=== PATIENT | female | born 1945 | race Two or more races ===

== ENCOUNTER 2023-12-28 11:27 | Inpatient (IN) | payer MEDICARE, OTHER ==
[~2023-12-28] VITALS: Ht 157.5 cm; Wt 51.9 kg
[~2023-12-28 11:27] MED LIST: ASPI-325 PO; ATO40T PO; CLOP75TA70 PO; LORA-483 PO; PANT40TA2 PO; TEMA30CA PO
[2023-12-28 12:39] VITALS: PULSE 101; RESP 15; O2SAT 97
[2023-12-28 12:59] LABS: Basophils # (auto) 0.3 10 ^3/uL (0-0.2); Basophils % (auto) 2.5 % (0.0-2.0); Eosinophils # (auto) 0.2 10 ^3/uL (0-0.8); Hematocrit 48.3 % (36.0-46.0); Hemoglobin 15.8 g/dL (12.2-16.2); Lymphocytes # (auto) 3.5 10 ^3/uL (0.4-5.4); Lymphocytes % (auto) 31.3 % (10.0-50.0); Mean Corpuscular Hemoglobin 29.7 pg (28.0-32.0); Mean Corpuscular Hgb Conc. 32.7 g/dL (32.0-36.0); Mean Corpuscular Volume 90.9 fL (80.0-100.0); Monocytes # (auto) 0.5 10 ^3/uL (0-1.3); Monocytes % (auto) 4.8 % (0.0-12.0); Neutrophils # (auto) 6.6 10 ^3/uL (1.6-8.6); Neutrophils % (auto) 59.4 % (37.0-80.0); Red Blood Cells 5.31 10^6/uL (4.0-5.20); Red Cell Distribution Width 14.3 % (11.8-14.3); White Blood Cell 11.1 10^3/uL (4.4-10.8)
[2023-12-28 13:02] LABS: Urine Bacteria NONE SEEN /hpf (None Seen); Urine Blood Negative /uL (Negative); Urine Clarity Clear (Clear); Urine Color STRAW (Yellow); Urine Protein, UAD Negative (Negative); Urine Specific Gravity 1.005 (1.001-1.035); Urine Urobilinogen Normal (Negative); Urine WBC <1 /hpf (0 - 5)
[2023-12-28 13:11] LABS: Alanine Aminotransferase 11 U/L (7-40); Albumin 4.9 g/dL (3.2-4.8); Alkaline Phosphatase 35 U/L (46-116); Anion Gap 8 (5-15); Aspartate Aminotransferase 19 U/L (13-40); BUN/Creatinine Ratio 23.9 (10.0-20.0); Blood Urea Nitrogen 17 mg/dL (9-23); Calcium 9.9 mg/dL (8.7-10.4); Carbon Dioxide 27 mmol/L (20-30); Chloride 105 mmol/L (98-107); Glucose 94 mg/dL (74-106); Magnesium 2.1 mg/dL (1.6-2.6); Potassium 4.6 mmol/L (3.5-5.1); Sodium 140 mmol/L (136-145)
[2023-12-28 13:12] LABS: Bilirubin, Total 0.4 mg/dL (0.2-1.0); Total Protein 7.5 g/dL (5.7-8.2)
[2023-12-28 13:32] LABS: Partial Thromboplastin Time 28.2 SEC (24.5-34.5); Prothrombin Time 10.5 sec (9.3-11.8)
[2023-12-28] MEDS ORDERED: LOSA50TA46 PO (16:43)
[2023-12-28] MEDS ORDERED: MONT-8 PO (16:43)
[2023-12-28] MEDS ORDERED: HYDROcodone-ACET 5/325MG TAB PO PRN (16:45)
[2023-12-28] MEDS ORDERED: MORPHINE SULFATE INJ 2 MG/ml SYRG IV PRN (16:45)
[2023-12-28] MEDS ORDERED: ACETAMINOPHEN 325 MG TAB PO PRN (16:45)
[2023-12-28] MEDS ORDERED: DOCUSATE SOD 100 MG CAP PO PRN (16:45)
[2023-12-28] MEDS ORDERED: NITROGLYCERIN 0.4 MG SL TAB SL PRN (16:45)
[2023-12-28] MEDS ORDERED: ONDANSETRON HCL 4 MG/2 ML VIAL IV PRN (16:45)
[2023-12-28] MEDS ORDERED: IPRATROPIUM BROM 0.5 MG/2.5ML INH SOL NEB PRN (17:00)
[2023-12-28] MEDS ORDERED: ALBUTEROL SULF 2.5 MG/0.5ML(0.5%) NEB SOLN NEB PRN (17:00)
[2023-12-28 17:06] VITALS: BP 165/62; PULSE 101; RESP 16; TEMP 97.7; O2SAT 97
[2023-12-28 20:00] VITALS: PULSE 90; RESP 16; O2SAT 95
[2023-12-28] MEDS: ATORVASTATIN 20 MG TAB PO SCH (22:00)
[2023-12-28] MEDS: MONTELUKAST SODIUM 10 MG TAB PO SCH (22:00)
[2023-12-28] MEDS: TEMAZEPAM 15 MG CAP PO SCH (22:02)
[2023-12-29 05:56] VITALS: O2SAT 93
[2023-12-29 06:07] LABS: Basophils # (auto) 0.1 10 ^3/uL (0-0.2); Eosinophils # (auto) 0.3 10 ^3/uL (0-0.8); Eosinophils % (auto) 4.4 % (0.0-7.0); Hematocrit 42.9 % (36.0-46.0); Hemoglobin 14.1 g/dL (12.2-16.2); Lymphocytes # (auto) 2.6 10 ^3/uL (0.4-5.4); Lymphocytes % (auto) 37.8 % (10.0-50.0); Mean Corpuscular Hemoglobin 30.1 pg (28.0-32.0); Mean Corpuscular Volume 91.4 fL (80.0-100.0); Monocytes # (auto) 0.7 10 ^3/uL (0-1.3); Monocytes % (auto) 9.9 % (0.0-12.0); Neutrophils # (auto) 3.3 10 ^3/uL (1.6-8.6); Neutrophils % (auto) 46.9 % (37.0-80.0); Red Cell Distribution Width 14.1 % (11.8-14.3)
[2023-12-29 06:40] LABS: Alkaline Phosphatase 27 U/L (46-116); Chloride 107 mmol/L (98-107); Potassium 3.8 mmol/L (3.5-5.1); Sodium 141 mmol/L (136-145)
[2023-12-29 06:49] LABS: Carbon Dioxide 24 mmol/L (20-30)
[2023-12-29 06:54] LABS: BUN/Creatinine Ratio 14.8 (10.0-20.0); Blood Urea Nitrogen 9 mg/dL (9-23); Glucose 91 mg/dL (74-106)
[2023-12-29 06:56] LABS: Albumin 3.9 g/dL (3.2-4.8); Aspartate Aminotransferase 12 U/L (13-40)
[2023-12-29 06:57] LABS: Bilirubin, Total 0.5 mg/dL (0.2-1.0); Total Protein 6.1 g/dL (5.7-8.2)
[2023-12-29 07:00] LABS: Alanine Aminotransferase < 9 U/L (7-40); Anion Gap 10 (5-15)
[2023-12-29 07:40] VITALS: PULSE 75; RESP 15; O2SAT 97
[2023-12-29] MEDS ORDERED: CLOPIDOGREL BISULFATE 75 MG TAB PO SCH (10:00)
[2023-12-29] MEDS: PANTOPRAZOLE 40 MG TAB PO SCH (10:00)
[2023-12-29] MEDS: LORATADINE 10 MG TAB PO SCH (10:00)
[2023-12-29] MEDS ORDERED: LORazepam 2MG/ML-1ML VIAL IV PRN (10:15)
[2023-12-29 10:30] LABS: Triglycerides 112 mg/dL (< 150)
[2023-12-29 10:31] LABS: LDL Cholesterol 170 mg/dL (< 100)
[2023-12-29 10:32] LABS: Cholesterol 242 mg/dL (< 200)
[2023-12-29 10:34] LABS: HDL Cholesterol 56 mg/dL (40-59)
[2023-12-29 10:54] VITALS: BP 144/66; PULSE 91; RESP 18; TEMP 97.6; O2SAT 96
[2023-12-29] MEDS: ASPirin-EC 81 mg tab PO SCH (11:01)
[2023-12-29] MEDS: LOSARTAN POTASSIUM 50 MG TAB PO SCH (11:01)
[2023-12-29] MEDS ORDERED: FLUT1AER17 INH (11:42)
== END 2023-12-29 14:15 | disposition left against medical advice (07) | DRG 305 ==
LOC: ER 11:27 → TELE 16:41 → TELE-CENTR 12-29 10:30
PROVIDERS: ADMIT Nurse Practitioner Family; ATTEND Family Medicine
DX: I16.0 Hypertensive urgency (principal); I65.21 Occlusion and stenosis of right carotid artery; E78.5 Hyperlipidemia, unspecified; I10 Essential (primary) hypertension; J45.909 Unspecified asthma, uncomplicated; K21.9 Gastro-esophageal reflux disease without esophagitis; Z53.29 Procedure and treatment not carried out because of patient's decision for other reasons; Z86.73 Personal history of transient ischemic attack (TIA), and cerebral infarction without residual deficits; Z79.02 Long term (current) use of antithrombotics/antiplatelets; Z79.82 Long term (current) use of aspirin; Z79.899 Other long term (current) drug therapy; Z82.49 Family history of ischemic heart disease and other diseases of the circulatory system; Z82.5 Family history of asthma and other chronic lower respiratory diseases; E78.00 Pure hypercholesterolemia, unspecified; Z83.3 Family history of diabetes mellitus; Z88.0 Allergy status to penicillin; Z90.49 Acquired absence of other specified parts of digestive tract
CPT/HCPCS: 36415; 70450; 70551; 71045; 80053; 80061; 81001; 83735; 83880; 84484; 85025; 85610; 85730; G0378